=== PATIENT | female | born 1960 | race Hispanic/Latino ===

== ENCOUNTER 2018-05-31 18:26 | Observation (INO) | payer SELFPAY ==
[2018-05-31 19:06] LABS: #Basophils 0.1 thou/uL (0.0-0.2); #Eosinphils 0.1 thou/uL (0.0-0.7); #Lymphocytes 2.8 thou/uL (1.20-3.40); #Monocytes 1.4 thou/uL (0.11-0.59); #Neutrophils 10.9 thou/uL (1.40-6.50); %Basophils 0.4 % (0.0-1.0); %Eosinophils 0.6 % (0.0-10.0); %Lymphocytes 18.3 % (21.0-51.0); %Monocytes 8.9 % (0.0-10.0); %Neutrophils 71.8 % (42.0-75.0); Hemoglobin 14.6 g/dL (12.0-16.0); Mean Corpuscular HGB CONC 33.1 g/dL (32.0-36.0); Mean Corpuscular Volume 93.5 fL (78.0-98.0); Mean Platelet Volume 8.5 fL (7.4-10.4); Platelet Count 206 thou/uL (130-400); White Blood Cell (WBC) Count 15.2 thou/uL (4.8-10.8)
[2018-05-31 19:16] LABS: ALT (SGPT) 38 U/L (8-55); AST (SGOT) 32 U/L (5-34); Alkaline Phosphatase 114 U/L (40-150); Anion Gap 12 mmol/L (10-20); BUN (Urea Nitrogen) 36 mg/dL (9.8-20.1); Bilirubin, Total 0.4 mg/dL (0.2-1.2); CK (CPK) 19 U/L (29-168); CRP (Inflammatory) Less than 0.50 mg/dL (= or < 0.5); Calc. Creatinine Clearance 0 mL/min (70-130); Calcium 8.9 mg/dL (7.8-10.44); Carbon Dioxide 16 mmol/L (22-29); Chloride 108 mmol/L (98-107); Estimated GFR-MDRD 52; Globulin 3.4 g/dL (2.4-3.5); Glucose 122 mg/dL (70-105); Potassium 4.4 mmol/L (3.5-5.1); Protein, Total 7.4 g/dL (6.0-8.3); Sodium 132 mmol/L (136-145)
[2018-05-31 19:19] LABS: Bilirubin Small (Negative); Blood, Urine Negative (Negative); Clarity CLEAR (Clear); Glucose, Urine (Dipstick) Negative (Negative); Leukocyte Moderate (Negative); Nitrite Negative (Negative); Protein, Urine (Dipstick) Trace mg/dL (Neg-Trace); Specific Gravity, Urine 1.033 (1.002-1.036); Urobilinogen 0.2 mg/dL (0.2-1.0); pH, Urine 5.5 (5.0-9.0)
[2018-05-31 19:21] LABS: Bacteria/HPF None Seen HPF (None Seen); Pathc Cast-AUWi Flag 1.74 (0-2.49); WBC/HPF 21-50 HPF (0-3)
--- NOTE | 2018-05-31 19:22 | RAD ---
RADIOGRAPH CHEST 1 VIEW: 05/31/18 HISTORY: 58-year-old female with chest pain. FINDINGS: There is no air space density, pulmonary edema, or pneumothorax. The lateral costophrenic angles are sharp. IMPRESSION: No acute pulmonary findings. katy [] POS: GEOVANNA
[2018-05-31 19:23] LABS: Hyaline Casts/LPF 0-3 HYALINE CAST LPF (0-3 Hyaline); Renal Epithelial None Seen HPF (0-3); Transitional Epithelial NONE SEEN HPF (0-3)
[2018-05-31 22:29] LABS: CKMB 0.7 ng/mL (0-6.6); Troponin I Less than 0.010 ng/mL (< 0.028)
[2018-05-31] MEDS ORDERED: Nitroglycerin 0.4 MG TAB (25 Tab Bottle) ONE (23:29)
--- NOTE | 2018-06-01 00:26 | PDOC.FPRHP ---
- History of Present Illness Chief Complaint: Chest Pain History of Present Illness: Ms Tubbs is a 58yo female with pmh of DM, HTN, HLD, Breast cancer who presents with chest pain that started 1 week ago. When pain first started it woke her from sleep and since has been intermittent only lasting a few minutes. Pt reports pain is worse with exertion and associated with nausea, vomiting and diaphoresis. Pain radiates to her back. Sometimes is relieved with rest but not always, relieved with nitro in ED. She reports having shortness of breath with exertion at baseline, has not worsened over the last 2 weeks. Pain currently 8/ 10. Denies fever ED Course: Nitro SL x3, ASA 324mg, 1L NS - Allergies/Adverse Reactions Allergies Allergy/AdvReac Type Severity Reaction Status Date / Time duloxetine [From Cymbalta] Allergy Verified 06/01/18 04:25 - Home Medications Medication Instructions Recorded Confirmed Type Atorvastatin Calcium [Lipitor] 40 mg PO DAILY 30 Days #30 tab 06/01/18 Rx Carisoprodol 1 tab PO BID 06/01/18 06/01/18 History Ergocalciferol (Vitamin D2) 50,000 unit PO ASDIR 06/01/18 06/01/18 History [Vitamin D2] Letrozole 1 tab PO DAILY 06/01/18 06/01/18 History Lisinopril 40 mg PO BID 06/01/18 06/01/18 History Meloxicam 15 mg PO DAILY 06/01/18 06/01/18 History Milnacipran HCl [Savella] 100 mg PO BID 06/01/18 06/01/18 History Oxybutynin Chloride [Oxybutynin 10 mg PO DAILY 06/01/18 06/01/18 History Chloride ER] Pantoprazole [Protonix] 40 mg PO DAILY 06/01/18 06/01/18 History Ranitidine HCl [Zantac 75] 75 mg PO BID PRN 06/01/18 06/01/18 History Sertraline HCl [Zoloft] 12.5 mg PO DAILY 30 Days #30 tab 06/01/18 Rx Zolpidem Tartrate 10 mg PO HS 06/01/18 06/01/18 History cloNIDine [Catapres] 0.1 mg PO DAILY PRN 06/01/18 06/01/18 History glipiZIDE [glipiZIDE ER] 1 tab PO DAILY 06/01/18 06/01/18 History traMADol HCl [Tramadol HCl] 100 mg PO BID 06/01/18 06/01/18 History - History PMHx: DM, HTN, HLD, Breast cancer s/p double mastectomy PSHx: Double mastectomy, b/l knee Social: Denies tobacco, alcohol or drug use. Lives in [place]- son and daughter check on her frequently - Review of Systems General: reports: fever/chills, night sweats. denies: weight/appetite/sleep changes Eyes: reports: other (Positive for blurry vision, pt reports intermittent blurry vision chronically). denies: vision changes ENT: denies: nasal congestion, rhinorrhea Respiratory: reports: shortness of breath. denies: cough, congestion Cardiovascular: reports: chest pain, edema Gastrointestinal: reports: nausea, vomiting. denies: diarrhea, constipation, abdominal pain Genitourinary: reports: dysuria, other (denies hematuria) Skin: denies: rashes, lesions Musculoskeletal: reports: pain, stiffness Neurological: denies: numbness, weakness Psychological: reports: depression - Vital signs BP: 158/99 HR: 89 RR: 18 Tmax: 97.0 Pox: 100% on RA Wt: 113.4 - Physical Exam Constitutional: NAD, awake, alert and oriented, well developed HEENT: normocephalic and atraumatic, PERRLA, TM's clear and intact, MMM, oropharynx clear Neck: trachea midline Chest: other (tender to palpation c/w fibromyalgia pain per pt) Heart: RRR Lungs: CTAB, no respiratory distress Abdomen: soft, non-tender, bowel sounds present Musculoskeletal: normal structure Skin: capillary refill <2 seconds Psychiatric: normal mood and affect, good judgment and insight, intact recent and remote memory FMR H&P: Results - Labs Result Diagrams: 05/31/18 18:49 05/31/18 18:49 Lab results: WBC 15.2 thou/uL (4.8-10.8) H 05/31/18 18:49 Hgb 14.6 g/dL (12.0-16.0) 05/31/18 18:49 Hct 44.0 % (36.0-47.0) 05/31/18 18:49 MCV 93.5 fL (78.0-98.0) 05/31/18 18:49 Plt Count 206 thou/uL (130-400) 05/31/18 18:49 Neutrophils % 71.8 % (42.0-75.0) 05/31/18 18:49 Sodium 132 mmol/L (136-145) L 05/31/18 18:49 Potassium 4.4 mmol/L (3.5-5.1) 05/31/18 18:49 Chloride 108 mmol/L (98-107) H 05/31/18 18:49 Carbon Dioxide 16 mmol/L (22-29) L 05/31/18 18:49 BUN 36 mg/dL (9.8-20.1) H 05/31/18 18:49 Creatinine 1.09 mg/dL (0.6-1.1) 05/31/18 18:49 Glucose 122 mg/dL (70-105) H 05/31/18 18:49 Calcium 8.9 mg/dL (7.8-10.44) 05/31/18 18:49 Total Bilirubin 0.4 mg/dL (0.2-1.2) 05/31/18 18:49 AST 32 U/L (5-34) 05/31/18 18:49 ALT 38 U/L (8-55) 05/31/18 18:49 Alkaline Phosphatase 114 U/L (40-150) 05/31/18 18:49 Creatine Kinase 19 U/L (29-168) L 05/31/18 18:49 CK-MB (CK-2) 0.7 ng/mL (0-6.6) 05/31/18 21:56 C-Reactive Protein Less than 0.50 mg/dL (= or < 0.5) 05/31/18 18:49 B-Natriuretic Peptide Less than 10.0 pg/mL (0-100) 05/31/18 18:49 Serum Total Protein 7.4 g/dL (6.0-8.3) 05/31/18 18:49 Albumin 4.0 g/dL (3.5-5.0) 05/31/18 18:49 Urine Ketones Negative mg/dL (Negative) 05/31/18 17:59 Urine Blood Negative (Negative) 05/31/18 17:59 Urine Nitrite Negative (Negative) 05/31/18 17:59 Ur Leukocyte Esterase Moderate (Negative) H 05/31/18 17:59 Urine RBC 4-6 HPF (0-3) 05/31/18 17:59 Urine WBC 21-50 HPF (0-3) H 05/31/18 17:59 Ur Squamous Epith Cells 4-6 HPF (0-3) H 05/31/18 17:59 Urine Bacteria None Seen HPF (None Seen) 05/31/18 17:59 - EKG Interpretation EKG: Sinus Tachycardia FMR H&P: A/P - Problem List (1) Chest pain Status: Acute Code(s): R07.9 - CHEST PAIN, UNSPECIFIED (2) Fibromyalgia Status: Chronic (3) HTN (hypertension) Status: Acute Code(s): I10 - ESSENTIAL (PRIMARY) HYPERTENSION (4) HLD (hyperlipidemia) Status: Acute Code(s): E78.5 - HYPERLIPIDEMIA, UNSPECIFIED (5) Breast cancer Status: Acute (6) Diabetes mellitus Status: Acute Code(s): E11.9 - TYPE 2 DIABETES MELLITUS WITHOUT COMPLICATIONS (7) UTI (urinary tract infection) Status: Acute (8) GERD (gastroesophageal reflux disease) Status: Acute Code(s): K21.9 - GASTRO-ESOPHAGEAL REFLUX DISEASE WITHOUT ESOPHAGITIS (9) Insomnia Status: Acute Code(s): G47.00 - INSOMNIA, UNSPECIFIED - Plan Chest Pain - Heart Score: 4 - Consider PE, pt is immobile in electric chair, pain worse with exertion a/w SOB and present laying flat. She has a hx of cancer - Well Score 3 - Ordered D-dimer - NPO for Stress Test - Nitro q5min for chest pain - Admit to Tele Symptomatic UTI - UA with 21-50 WBCs, + LE - 2g Ceftriaxone Leukocytosis - likely 2/2 to recent corticosteroid knee injections DM - Home BS 120-150 prior to recent steroid knee injections - Continue home glipizide - ACHS Accuchecks - Mild SSI Fibromyalgia - Continue home Savella HTN - Continue home clonidine, lisinopril GERD - Continue home ranitidine hx of Breast cancer - s/p double mastectomy - Continue Letrozole Urge incontinence - Continue home GERD - Continue home Pantoprazole and ranitidine Insomnia - Continue home Ambien DVT ppx: Lovenox Code Status: FULL FMR H&P: Upper Level - Pertinent history Ms Tubbs is a 58 yo female with PMHx of HTN, HLD, T2DM and breast cancer who presents with chest pain that started approximately 1 week ago. She reports that it has been intermittent since that time but today became worse with exertion. She thought it was related to anxiety and depression as the first anniversary of her 's is coming up this month. Pain is associated with nausea and diaphoresis and radiates to her back. Sometimes is relieved with rest and was relieved with nitro in ED. She reports having shortness of breath with exertion at baseline which is stable. - Pertinent findings PE: Gen: awake, alert, oriented x3, tearful HEENT: atraumatic, normocephalic, conjunctiva non-injected PULM: CTAB, breathing unlabored, symmetrical chest expansion CV: RRR, no murmur noted CHEST: TTP along sternal border ABD: Soft, no TTP, no distention, bowel sounds normoactive BACK: No CVAT EXT: Trace LE edema to mid jackson NEURO: CN grossly intact, motor strength 5/5 in all extremities, sensation grossly intact, hypersensitive to touch - Plan Date/Time: 06/01/18 0026 58 yo F with HTN, HLD, T2DM presents with typical chest pain and UTI 1. Typical Chest Pain: Pain worse with exertion and improved with rest and nitro. DDX includes CAD, costochondritis, PE, fibromyalgia, GERD/gastritis/PUD. Numerous risk factors. HEART score 4. NPO for stress test. Continue to trend trops and monitor on telemetry. Nitro PRN chest pain. Will check D-dimer. 2. UTI: Rocephin 2gm. UCx added. 3. Leukocytosis: Likely 2/2 recent corticosteroid use and UTI. Can monitor here or plan for OP f/u. 4. T2DM: Home glipizide. ACHS accuchecks. Mild SSI. 5. HTN: Home lisinopril, likely needs augmentation with additional agent. Clonidine parameters needed. 6. Fibromyalgia: Home savella, soma 7. GERD: Ranitadine and protonix, consider EGD outpatient 8. H/o breast cancer s/p double mastectomy: Continue letrozole 9. Urge incontinence: Home oxybutynin 10. Insomnia: Home Ambien 11. Osteoarthritis: Worse in BL knees. Recent steroid injections. Home meloxicam PRN. 12. Depressive symptoms: Recent loss of , sister and brother in law. Family support at home with children. PPX: Lovenox, home protonix CODE: FULL I, Mayra Wilkins MD, have evaluated this patient and agree with findings/plan as outlined by validation intern resident. Pertinent changes/additions are listed here. Attending Addendum - Attending Addendum Date/Time: 06/01/181936 I personally evaluated the patient at 1150 am and discussed the management with Dr. Campos/Franky. H&P repeated by me. I agree with the History, Examination, Assessment and Plan documented above with any addition or exceptions noted below. Ms. Mcleod is a 58 y/o HF with PMH of HTN, HLD, obesity, DM who presents with left sided chest pressure with associated n/v/diaphoresis. Relieved with NTG and rest. This am had an episode of shart midsternal chest pain and underwent CTA chest to r/o PE. No large PE seen and patient without tachycardia or hypoxia. When discussing with patient she describes many family stressors and grief that may be contributing. VSS, heart- normal s1/s2 no m,g,r; lungs: ctab. EKG reviewed and shows NSR. Labs and imaging reviewed. 1) Typical CP- stress test negative- most likely anxiety attack/stress reaction. 2) UTI- Rocephin Stable for d/c home since stress negative. F/U with PCP
[2018-06-01 02:52] LABS: Troponin I Less than 0.010 ng/mL (< 0.028)
[2018-06-01 04:01] VITALS: BMI 49.0
[2018-06-01] MEDS ORDERED: cloNIDine 0.1 MG TAB PO PRN ×2 (04:35→05:20)
[2018-06-01] MEDS ORDERED: Famotidine 20 MG TAB PO PRN (04:35)
[2018-06-01] MEDS ORDERED: Ergocalciferol 1.25 MG(50,000 UNITS) CAP PO SCH (04:45)
[2018-06-01] MEDS ORDERED: Dextrose 5% in Water 1,000 ML IV PRN (04:52)
[2018-06-01] MEDS ORDERED: Insulin Regular 300 UNITS/3 ML VIAL SC PRN (04:52)
[2018-06-01] MEDS ORDERED: Dextrose 50% Abboject 50 ML SYRINGE SLOW IVP PRN (04:52)
[2018-06-01 06:09] LABS: Cardiac Risk 2.5 (Less than 4.5)
[2018-06-01 06:11] LABS: Troponin I Less than 0.010 ng/mL (< 0.028)
[2018-06-01] MEDS: cefTRIAXone\\ROCEPHIN 2 GM in Sodium Chloride 0.9% 100 ML IVPB SCH ×2 (06:43→06:44)
[2018-06-01] MEDS: Acetaminophen 325 MG TAB PO PRN ×2 (06:49→14:28)
[2018-06-01] MEDS: Nitroglycerin 0.4 MG TAB (25 Tab Bottle) PO PRN ×4 (07:53→08:19)
[2018-06-01] MEDS ORDERED: Regadenoson 0.4 MG/5 ML SYRINGE ONE (08:19)
--- NOTE | 2018-06-01 08:38 | PDOC.EVN ---
Event Note - Event Note Event Note: Called to bedside for worsening chest pain Patient states it came on all of the sudden while she was sitting in bed Sharp, substernal 05/10 associated with SOB. Has had negative troponin x3 Not tachycardic on examination, no signs of labored breathing Had dimer of .5 this AM Ordered stat EKG, nitro tab Still not resolved ordered stat CTA and doppler of lower extremities
[2018-06-01] MEDS ORDERED: Lisinopril 20 MG TAB PO SCH (09:00)
[2018-06-01] MEDS ORDERED: Milnacipran Hcl [Savella] 100 MG PO SCH (09:00)
[2018-06-01] MEDS ORDERED: Enoxaparin Sodium 40 MG/0.4 ML SYRINGE SC SCH (09:00)
[2018-06-01] MEDS ORDERED: Oxybutynin ER 5 MG TAB PO SCH (09:00)
[2018-06-01] MEDS ORDERED: Meloxicam 15 MG TAB PO SCH (09:00)
[2018-06-01] MEDS ORDERED: Letrozole 2.5 MG TAB PO SCH (09:00)
[2018-06-01] MEDS ORDERED: ISOVUE-370 76%-LOCM 1 ML ONE (10:49)
--- NOTE | 2018-06-01 10:49 | ULT ---
BILATERAL LOWER EXTREMITY VENOUS DUPLEX EXAM: Date: 06/01/18 HISTORY: Bilateral leg pain. FINDINGS: Real-time color Doppler of right and left lower extremity was performed from groin to calf. This incl udes evaluation of the common femoral, superficial and profunda femoral, saphenous, popliteal, and tr ifurcation veins. This shows patent deep venous systems bilaterally. There is normal compressibility and augmentation. There is no evidence of deep venous thrombosis. IMPRESSION: No evidence of deep venous thrombosis of either lower extremity. POS: GEOVANNA
--- NOTE | 2018-06-01 11:27 | CT ---
CT ANGIO CHEST PERFORMED WITH IV CONTRAST ENHANCEMENT WITH 3D RECONSTRUCTIONS: Date: 06/01/18 HISTORY: Chest pain with shortness of breath, which has subsided. Patient has a history of double mastectomy. FINDINGS: The lungs are clear of any infiltrative process. There are subsegmental atelectatic changes in the ba ses. No pulmonary nodules. There is a calcified granuloma in the left base. No significant mediastinal or hilar adenopathy. No axillary adenopathy. Bilateral breast implants are present. The thoracic aorta is normal in caliber. There is suboptimal pulmonary artery opacification. I do not see any central pulmonary embolus, but p eripheral emboli are not excluded on the basis of this study. Visualized liver parenchyma shows fatty change. Right and left adrenal glands are normal. IMPRESSION: Limited examination for evaluation for pulmonary embolus. No large central embolus seen. POS: [facility]
--- NOTE | 2018-06-01 12:15 | NM ---
STRESS MYOCARDIAL PERFUSION SCAN: HISTORY: Hypertension. Diabetes. Dyslipidemia. Chest pain on exertion. TECHNIQUE/FINDINGS: Examination performed using 27.5 mCi 99m-technetium sestamibi as a stress-only examination. The stres s images show a normal distribution of the radiopharmaceutical. WALL MOTION: There is symmetric contractility to the ventricle. LEFT VENTRICULAR EJECTION FRACTION: The calculated left ventricular ejection fraction is 88%. IMPRESSION: Unremarkable stress myocardial perfusion scan. No signs of ischemia or scar. POS: GEOVANNA
[2018-06-01 16:42] VITALS: BP 134/74; TEMP 98.1
[2018-06-01] MEDS ORDERED: Zolpidem Tartrate 5 MG TAB PO SCH (21:00)
--- NOTE | 2018-06-02 01:16 | DIS-2 ---
DATE OF ADMISSION: 06/01/2018 DATE OF DISCHARGE: 06/01/2018 RESIDENT: Dr. Zelalem Weber. ADMITTING ATTENDING: Dr. Kathrine Asencio. DISCHARGE ATTENDING: Dr. Kathrine Asencio. CONSULTATIONS: None. PROCEDURES: Chest CTA shows no large pulmonary embolus, stress test shows no sign of myocardial infa rction, bilateral Doppler ultrasound shows no DVTs. PRIMARY DIAGNOSIS: Chest pain secondary to anxiety. SECONDARY DIAGNOSES: Fibromyalgia, hypertension, hyperlipidemia, history of breast cancer, diabetes mellitus, urinary tract infection, gastroesophageal reflux disease, insomnia. DISCHARGE MEDICATIONS: Atorvastatin 40 mg daily, sertraline 12.5 mg daily, Soma, Savella, clonidine, glipizide, letrozole, lisinopril, meloxicam, oxybutynin, pantoprazole, tramadol. DISCONTINUED MEDICATIONS: None. HISTORY OF PRESENT ILLNESS AND HOSPITAL COURSE: This is a 58-year-old female who came in with stabbi ng, left-sided substernal chest pain rating today 9/10. It has been going on for about a week. They did come and gone, lasting about a few minutes at a time. She stated the pain was worse with exerti on associated with nausea, vomiting, diaphoresis. She said the pain radiated to the back. It reliev ed with rest, but not always, relieved with nitro in the ED. Some shortness of breath with exertion at baseline. The patient developed chest pain in the morning after admission and had a moderately high D-dimer at 0.5. She was sent down for a stat CTA, which showed no signs of large pulmonary embolism. She also had bilateral Doppler ultrasound that showed no DVT. She had a stress test, which showed no active l esions. On further discussion with the patient throughout the stay, apparent that she was undergoing a lot of stress with deaths of three close family members as of late. Patient states that this stre ss has been taking a toll on her. She states that she is going to establish care with a PCP at [facility] on 06/05/2018. DISPOSITION: Stable. DISCHARGE INSTRUCTIONS: 1. Location: Home. 2. Diet: Heart healthy. 3. Activity: As tolerated. 4. Follow up. [facility] on 06/05/2018, continue to encourage healthy diet and recommend referral for psychotherapy for dealing with stress.
--- NOTE | 2018-06-04 13:44 | EKG ---
Test Reason : Blood Pressure : / mmHG Vent. Rate : 097 BPM Atrial Rate : 097 BPM P-R Int : 136 ms QRS Dur : 064 ms QT Int : 350 ms P-R-T Axes : 030 -04 037 degrees QTc Int : 444 ms Normal sinus rhythm Normal ECG Confirmed by PHILLIP HILL ([id number]) on 06/04/2018 1:43:40 PM Referred By: GOPAL Confirmed By:PHILLIP HILL
== END 2018-06-01 18:15 | disposition home or self-care (01) ==
LOC: ERS 18:26 → 2NO 06-01 00:05
PROVIDERS: ADMIT Family Medicine; ATTEND Family Medicine
DX: F41.9 Anxiety disorder, unspecified (principal); I10 Essential (primary) hypertension; E78.5 Hyperlipidemia, unspecified; E11.9 Type 2 diabetes mellitus without complications; N39.0 Urinary tract infection, site not specified; K21.9 Gastro-esophageal reflux disease without esophagitis; G47.00 Insomnia, unspecified; Z79.84 Long term (current) use of oral hypoglycemic drugs; Z79.899 Other long term (current) drug therapy; Z85.3 Personal history of malignant neoplasm of breast; Z88.8 Allergy status to other drugs, medicaments and biological substances
CPT/HCPCS: 36415; 36416; 71045; 71275; 78452; 80053; 80061; 81003; 81015; 82550; 82553; 83880; 84484; 85025; 85379; 86140; 87086; 90471; 90732; 93005; 93010; 93017; 93970; 94760; 96360; 96372; A9500; G0009; G0378; J0696; J1650; J1815; J2785; J7050

== ENCOUNTER 2019-04-16 19:20 | Observation (INO) | payer SELFPAY ==
[~2019-04-16 19:20] MED LIST: ISOVUE-370 76%-LOCM 1 ML ONE
[2019-04-16] MEDS ORDERED: Aspirin Chewable 81 MG TAB ONE (20:09)
[2019-04-16] MEDS ORDERED: Nitroglycerin 2% Ointment 1 INCH/1 GM Packet ONE (20:09)
[2019-04-16 20:10] LABS: #Basophils 0.1 thou/uL (0.0-0.2); #Eosinphils 0.3 thou/uL (0.0-0.7); #Lymphocytes 2.3 thou/uL (1.20-3.40); #Monocytes 0.7 thou/uL (0.11-0.59); #Neutrophils 5.7 thou/uL (1.40-6.50); %Basophils 0.7 % (0.0-1.0); %Eosinophils 3.5 % (0.0-10.0); %Lymphocytes 25.6 % (21.0-51.0); %Monocytes 7.3 % (0.0-10.0); %Neutrophils 62.9 % (42.0-75.0); Hemoglobin 14.2 g/dL (12.0-16.0); Mean Corpuscular HGB CONC 33.4 g/dL (32.0-36.0); Mean Corpuscular Hemoglobin 31.9 pg (27.0-31.0); Mean Corpuscular Volume 95.5 fL (78.0-98.0); Mean Platelet Volume 10.4 fL (7.4-10.4); Platelet Count 200 thou/uL (130-400); RBC Distribution Width 12.9 % (11.5-14.5); Red Blood Cell (RBC) Count 4.44 mill/uL (4.20-5.40)
--- NOTE | 2019-04-16 20:17 | RAD ---
PORTABLE CHEST: 04/16/19 PROVIDED CLINICAL HISTORY: Chest pain. FINDINGS: Comparison 05/31/18. Cardiac and mediastinal silhouette is within normal limits. The lungs appear clear. No pleural fluid or pneumothorax apparent. IMPRESSION: No evidence for an acute cardiopulmonary process. POS: H
[2019-04-16 21:21] LABS: Albumin 3.9 g/dL (3.5-5.0)
[2019-04-16 21:22] LABS: Chloride 106 mmol/L (98-107); Potassium 4.5 mmol/L (3.5-5.1); Sodium 137 mmol/L (136-145)
[2019-04-16 21:23] LABS: Calcium 9.4 mg/dL (7.8-10.44)
[2019-04-16 21:24] LABS: Globulin 4.2 g/dL (2.4-3.5); Glucose 170 mg/dL (70-105); Protein, Total 8.1 g/dL (6.0-8.3)
[2019-04-16 21:25] LABS: Anion Gap 14 mmol/L (10-20); Bilirubin, Total 0.3 mg/dL (0.2-1.2); Carbon Dioxide 22 mmol/L (22-29)
[2019-04-16 21:26] LABS: Alkaline Phosphatase 145 U/L (40-150)
[2019-04-16 21:27] LABS: Calc. Creatinine Clearance 0 mL/min (70-130); Estimated GFR-MDRD 74
[2019-04-16 21:28] LABS: BUN (Urea Nitrogen) 17 mg/dL (9.8-20.1)
[2019-04-16 21:29] LABS: ALT (SGPT) 109 U/L (8-55); AST (SGOT) 110 U/L (5-34)
[2019-04-16 21:30] LABS: CK (CPK) 29 U/L (29-168)
[2019-04-16] MEDS ORDERED: Morphine 4 MG/ML VIAL ONE (22:32)
--- NOTE | 2019-04-16 22:39 | CT ---
EXAM: CT pulmonary angiogram with IV contrast and 3-D MIP reconstructions PROVIDED CLINICAL HISTORY: Chest pain COMPARISON: 06/01/2018 FINDINGS: Evaluation is limited by patient body habitus and associated quantum mottle. Vascular calcification i s noted including coronary calcium. There is no definite evidence for central or segmental pulmonary embolus. The lungs are free of significant opacity. No pleural fluid or pneumothorax appare nt. No evidence for thoracic lymph node enlargement. The airway appears patent and of normal caliber. The visualized portions of the upper abdomen demonstrate no acute findings. The osseous stru ctures demonstrate no concerning lytic or blastic lesions. IMPRESSION: No evidence for central or segmental pulmonary embolus with limitations as above.
[2019-04-16 23:55] LABS: Troponin I Less than 0.010 ng/mL (< 0.028)
[2019-04-17 01:11] VITALS: BMI 49.0
[2019-04-17] MEDS ORDERED: Sodium Chloride 0.9% 1,000 ML IV SCH (01:14)
[2019-04-17] MEDS ORDERED: Ondansetron PF 4 MG/2 ML Vial IVP PRN (01:14)
[2019-04-17] MEDS ORDERED: Ondansetron ODT 4 MG TAB SL PRN (01:14)
[2019-04-17 02:45] LABS: Troponin I Less than 0.010 ng/mL (< 0.028)
[2019-04-17] MEDS ORDERED: cloNIDine 0.1 MG TAB PO PRN (02:49)
[2019-04-17] MEDS ORDERED: RANITIDINE HCL 75 MG PO PRN (02:49)
[2019-04-17] MEDS ORDERED: Benzonatate 100 MG CAP PO PRN (02:49)
[2019-04-17] MEDS ORDERED: HumaLOG 300 UNITS/3 ML VIAL SC PRN ×2 (02:51)
[2019-04-17] MEDS ORDERED: Dextrose 50% Abboject 50 ML SYRINGE SLOW IVP PRN (02:51)
[2019-04-17] MEDS ORDERED: Dextrose 5% in Water 1,000 ML IV PRN (02:51)
[2019-04-17 04:38] LABS: Cardiac Risk 2.7 (Less than 4.5)
[2019-04-17] MEDS ORDERED: Acetaminophen 325 MG TAB PO PRN (04:58)
[2019-04-17] MEDS ORDERED: Acetaminophen 500 MG TAB PO SCH (05:00)
--- NOTE | 2019-04-17 08:18 | HP ---
CHIEF COMPLAINT: Chest pain. HISTORY OF PRESENT ILLNESS: Ms. Tubbs is a pleasant 59-year-old female with past medical history significant for type 2 diabetes mellitus, hypertension, hyperlipidemia, and obesity, who presented to the hospital with complaints of chest discomfort that she describes as a tightness. There was no radiation. She describes the sensation as a pressure and as if someone was lying on her chest. She had some associated dizziness, shortness of breath and diaphoresis with the discomfort. She then stated she had some associated bilateral arm and leg pain. Because of her symptoms, she presented to the ED for further workup and treatment. On arrival to the ED, EKG showed sinus tachycardia, no acute ST or T-wave changes. Her initial troponin was negative. Her D-dimer was mildly elevated and CTA was performed, which showed no evidence of pulmonary embolism. At the time of my interview, the patient is chest pain free. She will be admitted to the hospitalist service for further workup and risk stratification. REVIEW OF SYSTEMS: A 12-point review of systems was performed. The patient states that she has had some joint aches and pains, and is currently being worked up for lupus by her primary care provider. She reports that she is largely nonambulatory secondary to severe osteoarthritis in her knees. The patient denies any cough, fever, chills, nausea, or vomiting. She has had no sick contacts. She denies cough, dysuria, or other any GI complaints at this time. PAST MEDICAL HISTORY: 1. Type 2 diabetes mellitus. 2. Hypertension. 3. Hyperlipidemia. 4. History of breast cancer status post double mastectomy. 5. Fibromyalgia. PAST SURGICAL HISTORY: Double mastectomy as mentioned above. SOCIAL HISTORY: She denies any alcohol, tobacco, or illicit drug use. Her last October. She has a good family support with her daughter. ALLERGIES: DULOXETINE. HOME MEDICATIONS: 1. Benzonatate capsule 200 mg p.o. t.i.d. 2. Soma 350 mg tablet one tablet p.o. t.i.d. 3. Clonidine 0.1 mg tablet daily. 4. Vitamin D2 29144 units p.o. as directed. 5. Glipizide 10 mg tablet one tablet daily. 6. Lisinopril 40 mg tablet one tablet p.o. b.i.d. 7. Meloxicam 50 mg tablet p.o. nightly. 8. Savella 100 mg tablet p.o. b.i.d. 9. Protonix 40 mg tablet one tablet p.o. daily. 10. Ranitidine 75 mg tablet one tablet p.o. b.i.d. 11. Tramadol 100 mg p.o. b.i.d. 12. Zolpidem tartrate 10 mg p.o. nightly. 13. Atorvastatin 40 mg tablet one tablet daily. PHYSICAL EXAMINATION: VITAL SIGNS: Blood pressure is 126/63, temperature 97.4, pulse is in the 90s, respirations 20, and O2 saturation is 96% on room air. GENERAL: The patient is an obese female, resting comfortably in bed, in no acute distress. HEENT: Head is atraumatic and normocephalic. Mucous membranes are moist. NECK: Trachea is midline. No JVD. CV: S1 and S2. Regular rate and rhythm. LUNGS: Regular respiratory rate and pattern. Overall clear to auscultation bilaterally. ABDOMEN: Positive bowel sounds, soft, obese, nontender. EXTREMITIES: Both lower extremities are warm and well perfused. There is no pitting edema. NEUROLOGIC: Cranial nerves 2 through 12 are grossly intact. The patient is nonfocal. SKIN: Warm and dry. LABORATORY DATA: White blood cell count 9, hemoglobin 14.2, hematocrit 42.4, platelet is 200. D-dimer was 0.45. Sodium 137, potassium 4.5, BUN is 17, creatinine 0.79. AST is 110, ALT is 109, alkaline phosphatase is 145. Troponin was negative x3. BNP less than 10. ASSESSMENT: 1. Chest pain in a patient with multiple risk factors as outlined below. 2. Type 2 diabetes mellitus. 3. Hypertension. 4. Hyperlipidemia. 5. Obesity. 6. Elevated liver transaminases. 7. Fibromyalgia and chronic pain. 8. Severe osteoarthritis. 9. Breast cancer status post double mastectomy. PLAN: The patient has been admitted for further risk stratification given her multiple risk factors for coronary artery disease. We will proceed with nuclear stress test in the morning. We will add aspirin 81 mg daily to her regimen. Given the patient's elevated transaminases, she may not be eligible for statin therapy at this time; will hold her atorvastatin for now and recheck LFTs in am. We will continue sliding scale insulin. DVT and GI prophylaxis have been ordered. Further recommendations based on hospital course. We will also obtain a lipid panel in the morning. Job ID: [id number] MTDD
[2019-04-17] MEDS ORDERED: Aspirin 81 mg Enteric Coated Tablet PO SCH (09:00)
[2019-04-17] MEDS ORDERED: Atorvastatin Calcium 40 MG TAB PO SCH (09:00)
[2019-04-17] MEDS ORDERED: Lisinopril 20 MG TAB PO SCH (09:00)
[2019-04-17] MEDS: traMADol HCl 50 MG TAB PO SCH ×2 (10:23→11:54)
--- NOTE | 2019-04-17 12:16 | NM ---
RADIONUCLIDE STRESS ONLY MYOCARDIAL PERFUSION SCAN WITH CT ATTENUATION CORRECTION AND SPECT IMAGING W ITH LEFT VENTRICULAR WALL MOTION EVALUATION AND EJECTION FRACTION: HISTORY: Chest pain. FINDINGS: Adenosine protocol. Homogeneous uptake of radiotracer throughout the left ventricular myocardium. No focal perfusion defe ct or reversibility. QGS analysis of gated SPECT images shows no focal wall motion abnormalities. Ejection fraction calculated at 87%. IMPRESSION: 1. Normal myocardial stress perfusion exam. 2. Normal LVEF. POS: [facility]
[2019-04-17] MEDS ORDERED: Ketorolac Tromethamine 30 MG/ML VIAL IVP SCH (15:00)
[2019-04-17 15:37] VITALS: BP 132/63; TEMP 98.4
[2019-04-17] MEDS ORDERED: Meloxicam 15 MG TAB PO SCH (21:00)
[2019-04-17] MEDS ORDERED: Enoxaparin Sodium 40 MG/0.4 ML SYRINGE SC SCH (21:00)
[2019-04-17] MEDS ORDERED: Zolpidem Tartrate 5 MG TAB PO SCH (21:00)
--- NOTE | 2019-04-19 13:04 | EKG ---
Test Reason : Blood Pressure : / mmHG Vent. Rate : 102 BPM Atrial Rate : 102 BPM P-R Int : 126 ms QRS Dur : 068 ms QT Int : 348 ms P-R-T Axes : -12 -14 006 degrees QTc Int : 453 ms Sinus tachycardia Otherwise normal ECG Confirmed by STEPH SAENZ, RIKI Hall ([id number]), science editor PRATIBHA CARO ([id number]) on 04/19/2019 1:04:19 PM Referred By: Confirmed By:IRKI CHOI MD
== END 2019-04-17 16:53 | disposition home or self-care (01) ==
LOC: ERS 19:20 → 2SW 23:00
PROVIDERS: ADMIT Family Medicine; ATTEND Family Medicine
DX: R07.89 Other chest pain (principal); E11.9 Type 2 diabetes mellitus without complications; E78.5 Hyperlipidemia, unspecified; I10 Essential (primary) hypertension; M79.7 Fibromyalgia; M19.90 Unspecified osteoarthritis, unspecified site; G89.29 Other chronic pain; R74.0 Nonspecific elevation of levels of transaminase and lactic acid dehydrogenase [LDH]; E66.9 Obesity, unspecified; Z68.42 Body mass index [BMI] 45.0-49.9, adult; Z85.3 Personal history of malignant neoplasm of breast; Z79.1 Long term (current) use of non-steroidal anti-inflammatories (NSAID); Z79.84 Long term (current) use of oral hypoglycemic drugs; Z79.899 Other long term (current) drug therapy; Z88.8 Allergy status to other drugs, medicaments and biological substances
CPT/HCPCS: 36415; 36416; 71045; 71275; 78452; 80053; 80061; 82550; 83690; 83880; 84484; 85025; 85379; 93005; 93017; 96361; 96374; A9500; G0378; J0153; J1885; J2270; Q9966

== ENCOUNTER 2019-05-27 15:35 | Emergency (ER) | payer SELFPAY ==
[2019-05-27 16:18] LABS: #Eosinphils 0.2 thou/uL (0.0-0.7); #Lymphocytes 1.3 thou/uL (1.20-3.40); #Monocytes 0.6 thou/uL (0.11-0.59); #Neutrophils 6.9 thou/uL (1.40-6.50); %Basophils 0.5 % (0.0-1.0); %Eosinophils 2.1 % (0.0-10.0); %Lymphocytes 14.3 % (21.0-51.0); %Monocytes 6.6 % (0.0-10.0); %Neutrophils 76.6 % (42.0-75.0); Hemoglobin 14.5 g/dL (12.0-16.0); Mean Corpuscular HGB CONC 31.9 g/dL (32.0-36.0); Mean Corpuscular Hemoglobin 30.8 pg (27.0-31.0); Mean Corpuscular Volume 96.5 fL (78.0-98.0); Mean Platelet Volume 9.8 fL (7.4-10.4); Platelet Count 229 thou/uL (130-400); RBC Distribution Width 12.3 % (11.5-14.5); Red Blood Cell (RBC) Count 4.71 mill/uL (4.20-5.40)
--- NOTE | 2019-05-27 16:19 | RAD ---
EXAM: CHEST ONE VIEW HISTORY: Shortness of breath, chest pain, back pain. COMPARISON: 04/16/2019 FINDINGS: The cardiac silhouette and pulmonary vasculature are within normal limits. The lungs are clear. The o sseous structures are intact. Chest is stable from prior study. IMPRESSION: No acute cardiopulmonary process.
[2019-05-27 16:41] LABS: ALT (SGPT) 183 U/L (8-55); AST (SGOT) 229 U/L (5-34); Albumin 4.3 g/dL (3.5-5.0); Alkaline Phosphatase 118 U/L (40-150); Anion Gap 16 mmol/L (10-20); BUN (Urea Nitrogen) 27 mg/dL (9.8-20.1); Bilirubin, Total 0.5 mg/dL (0.2-1.2); CK (CPK) 40 U/L (29-168); Calc. Creatinine Clearance 0 mL/min (70-130); Calcium 9.8 mg/dL (7.8-10.44); Carbon Dioxide 19 mmol/L (22-29); Chloride 106 mmol/L (98-107); Estimated GFR-MDRD 38; Globulin 4.1 g/dL (2.4-3.5); Glucose 138 mg/dL (70-105); Lipase 20 U/L (8-78); Potassium 4.5 mmol/L (3.5-5.1); Protein, Total 8.4 g/dL (6.0-8.3); Sodium 136 mmol/L (136-145)
--- NOTE | 2019-05-27 17:08 | CT ---
CT chest arteriogram chest with IV contrast and 3-D imaging HISTORY: Chest pain. Dyspnea. FINDINGS: There is good contrast opacification pulmonary arteries and thoracic aorta with bovine orig in of the great vessels at the aortic arch. Mild atelectasis within the dependent portion of each lung. No pleural fluid or mediastinal adenopathy. Bilateral breast implants. Hiatal hernia contains a bdominal fat but no significant portion of the stomach. IMPRESSION: No evidence of pulmonary embolus.
[2019-05-27 18:03] LABS: Bilirubin Negative (Negative); Blood, Urine Negative (Negative); Clarity Clear (Clear); Glucose, Urine (Dipstick) Normal (Negative); Leukocyte 500 Leu/uL (Negative); Nitrite Negative (Negative); Protein, Urine (Dipstick) 30 mg/dL (Neg-Trace); WBC/HPF 21-50 HPF (0-3)
[2019-05-27] MEDS ORDERED: Morphine 4 MG/ML VIAL ONE (18:13)
[2019-05-27] MEDS ORDERED: Ondansetron PF 4 MG/2 ML Vial ONE (18:13)
[2019-05-27 18:15] LABS: Bacteria/HPF Rare-Few HPF (None Seen); RBC/HPF 0-3 HPF (0-3)
--- NOTE | 2019-05-27 18:53 | ULT ---
US Gallbladder RUQ History: Pain Comparison: CT chest same day Findings: Real-time grayscale and color evaluation of the right upper quadrant of the abdomen was per formed. Visualized portion of the pancreas and IVC are unremarkable. Diffuse increased hepatic echotexture wi thout mass. Right kidney measures 9.8 x 4.1 x 5.1 cm without mass, hydronephrosis, or abnormal calcifications. Gallbladder is normal. No pericholecystic fluid. Impression: 1. Normal gallbladder without cholelithiasis or cholecystitis. 2. Hepatic steatosis.
[2019-05-27] MEDS ORDERED: cefTRIAXone\\ROCEPHIN 1 GM VIAL ONE (19:31)
[2019-05-27] MEDS ORDERED: HYDROcodone/Acetaminophen 10/325 mg Tablet ONE (19:46)
--- NOTE | 2019-05-27 20:24 | CT ---
CT Stone Protocol History: Right lower quadrant pain. Flank pain. Comparison: None. Findings: Although incompletely evaluated there appears to be rupture of the right breast implant, vane th intracapsular and extracapsular. Evaluation for calculus is limited due to contrast within the collecting systems, ureters, and urinar y bladder. There is no hydroureteronephrosis. No perinephric stranding. No dilated loops of large or small bowel. Pancreas, spleen, liver, gallbladder are all unremarkable. Few phleboliths within the appendix without periappendiceal stranding. Advanced facet arthropathy lower lumbar spine. 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 No acute osseous abnormality. Impression: 1. No evidence of a renal obstructive process. No hydroureteronephrosis. 2. No acute inflammatory process within the abdomen or pelvis.
== END 2019-05-27 21:31 | disposition home or self-care (01) ==
LOC: ERS 15:35
DX: N39.0 Urinary tract infection, site not specified (principal); R07.2 Precordial pain; E11.9 Type 2 diabetes mellitus without complications; I10 Essential (primary) hypertension; Z79.899 Other long term (current) drug therapy
CPT/HCPCS: 36415; 71045; 71275; 74176; 76705; 80053; 81003; 81015; 82550; 83690; 83880; 84484; 85025; 85379; 87086; 93005; 96361; 96365; 96375; J0696; J2270; J2405; Q9966

== ENCOUNTER 2020-06-20 16:52 | Emergency (ER) | payer MEDICARE, OTHER ==
[2020-06-20 18:09] LABS: #Basophils 0.1 thou/uL (0.0-0.2); #Eosinphils 0.2 thou/uL (0.0-0.7); #Lymphocytes 2.5 thou/uL (1.20-3.40); #Monocytes 1.2 thou/uL (0.11-0.59); #Neutrophils 7.2 thou/uL (1.40-6.50); %Basophils 0.5 % (0.0-1.0); %Eosinophils 1.6 % (0.0-10.0); %Lymphocytes 22.3 % (21.0-51.0); %Monocytes 10.7 % (0.0-10.0); %Neutrophils 64.8 % (42.0-75.0); Hemoglobin 12.5 g/dL (12.0-16.0); Mean Corpuscular HGB CONC 32.8 g/dL (32.0-36.0); Mean Corpuscular Hemoglobin 31.2 pg (27.0-31.0); Mean Platelet Volume 9.9 fL (7.4-10.4); Platelet Count 231 thou/uL (130-400); Red Blood Cell (RBC) Count 4.02 mill/uL (4.20-5.40)
[2020-06-20 18:38] LABS: ALT (SGPT) 46 U/L (8-55); AST (SGOT) 56 U/L (5-34); Albumin 3.6 g/dL (3.5-5.0); Alkaline Phosphatase 129 U/L (40-110); Anion Gap 15 mmol/L (10-20); BUN (Urea Nitrogen) 18 mg/dL (9.8-20.1); Bilirubin, Total 0.4 mg/dL (0.2-1.2); Calc. Creatinine Clearance 0 mL/min (70-130); Calcium 8.9 mg/dL (7.8-10.44); Carbon Dioxide 19 mmol/L (22-29); Chloride 106 mmol/L (98-107); Estimated GFR-MDRD 74; Globulin 4.1 g/dL (2.4-3.5); Glucose 121 mg/dL (70-105); Potassium 4.6 mmol/L (3.5-5.1); Protein, Total 7.7 g/dL (6.0-8.3); Sodium 135 mmol/L (136-145)
== END 2020-06-20 18:58 | disposition home or self-care (01) ==
LOC: ERS 16:52
DX: L76.82 Other postprocedural complications of skin and subcutaneous tissue (principal); E11.9 Type 2 diabetes mellitus without complications; I10 Essential (primary) hypertension; F41.9 Anxiety disorder, unspecified; F32.9 Major depressive disorder, single episode, unspecified; M79.7 Fibromyalgia; Z79.899 Other long term (current) drug therapy
CPT/HCPCS: 80053; 83605; 85025; 99283

== ENCOUNTER 2022-12-13 06:02 | Day surgery (SDC) | payer MEDICARE ==
[2022-12-12 09:57] VITALS: BMI 44.9
[2022-12-13] MEDS ORDERED: Lidocaine 1% MPF 2 ML VIAL ONE (06:06)
[2022-12-13] MEDS ORDERED: PROPOFOL 200 MG/20 ML VIAL ONE (07:45)
[2022-12-13] MEDS ORDERED: Lidocaine 1% PF 5 ML VIAL ONE (07:45)
== END 2022-12-13 08:49 | disposition home or self-care (01) ==
LOC: SDC 06:02
PROVIDERS: ATTEND Internal Medicine Gastroenterology
PROC: 0DJD8ZZ Inspection of Lower Intestinal Tract, Via Natural or Artificial Opening Endoscopic (ICD-10-PCS; principal; 2022-12-13)
DX: Z12.11 Encounter for screening for malignant neoplasm of colon (principal); K57.30 Diverticulosis of large intestine without perforation or abscess without bleeding; I50.9 Heart failure, unspecified; J44.9 Chronic obstructive pulmonary disease, unspecified; E11.9 Type 2 diabetes mellitus without complications; G47.33 Obstructive sleep apnea (adult) (pediatric); Z86.718 Personal history of other venous thrombosis and embolism; Z79.1 Long term (current) use of non-steroidal anti-inflammatories (NSAID); Z79.83 Long term (current) use of bisphosphonates; Z79.891 Long term (current) use of opiate analgesic; Z79.899 Other long term (current) drug therapy; Z88.1 Allergy status to other antibiotic agents; Z88.8 Allergy status to other drugs, medicaments and biological substances
CPT/HCPCS: J2704

== ENCOUNTER 2024-09-18 06:22 | Day surgery (SDC) | payer MEDICARE ==
[2024-09-17 11:30] VITALS: BMI 32.9
[2024-09-18] MEDS ORDERED: Ipratropium/Albuterol 3 ML NEB ONE (07:06)
[2024-09-18] MEDS ORDERED: Lidocaine 2% PF 5 ML VIAL ONE (07:10)
[2024-09-18] MEDS ORDERED: PROPOFOL 40 ML ONE (07:10)
== END 2024-09-18 08:35 | disposition home or self-care (01) ==
LOC: SDC 06:22
PROVIDERS: ATTEND Internal Medicine Gastroenterology
PROC: 0DJ08ZZ Inspection of Upper Intestinal Tract, Via Natural or Artificial Opening Endoscopic (ICD-10-PCS; principal; 2024-09-18)
DX: K74.60 Unspecified cirrhosis of liver (principal); I11.0 Hypertensive heart disease with heart failure; I50.9 Heart failure, unspecified; J44.9 Chronic obstructive pulmonary disease, unspecified; I73.9 Peripheral vascular disease, unspecified; M81.0 Age-related osteoporosis without current pathological fracture; E11.42 Type 2 diabetes mellitus with diabetic polyneuropathy; E55.9 Vitamin D deficiency, unspecified; G47.30 Sleep apnea, unspecified; Z90.710 Acquired absence of both cervix and uterus; Z79.84 Long term (current) use of oral hypoglycemic drugs; Z86.718 Personal history of other venous thrombosis and embolism; Z88.8 Allergy status to other drugs, medicaments and biological substances; Z88.5 Allergy status to narcotic agent; Z88.1 Allergy status to other antibiotic agents; Z79.51 Long term (current) use of inhaled steroids; Z79.899 Other long term (current) drug therapy
CPT/HCPCS: 43235; J2704; J7620